=== PATIENT | male | born 1995 | race Caucasian/White ===

== ENCOUNTER 2023-02-08 09:54 | Outpatient (CLI) | payer BC, SELFPAY ==
--- NOTE | ~2023-02-08 | MR_ITS ---
MRI of the right knee Clinical history: Pain Technique: Coronal proton density and proton density-weighted images, sagittal proton-density and T2 fat-sat images, and axial proton-density fat-saturated images were acquired. Findings: Anterior and posterior cruciate ligaments are intact. Medial collateral ligament and the la teral collateral ligament complex are intact. Popliteus tendon is intact. Medial and lateral menisci are intact, without evidence of tear. Articular cartilage is well preserved throughout the knee. Bone marrow signals are unremarkable. There is thickening and increased signal of the proximal patellar tendon. No surrounding soft tissue edema. Distal quadriceps tendon is intact. No joint effusion or Luu's cyst. Impression: Thickening and mild increased signal of the proximal patellar tendon, consistent with tendinosis. No other significant findings. Reviewed, dictated and finalized at [facility]. Impression: Thickening and mild increased signal of the proximal patellar tendon, consisten t with tendinosis. No other significant findings.
== END 2023-02-08 09:55 | disposition home or self-care (01) ==
PROVIDERS: Visit Provider Orthopaedic Surgery
DX: M25.561 Pain in right knee (principal); G89.29 Other chronic pain
CPT/HCPCS: 73721